=== PATIENT | female | born 1980 | race Caucasian/White ===

== ENCOUNTER 2025-05-05 23:53 | Emergency (ER) | payer BC ==
[~2025-05-05] VITALS: Ht 172.7 cm; Wt 65.0 kg
[2025-05-05 23:55] VITALS: BP 151/82; PULSE 102; RESP 18; TEMP 37.1; O2SAT 96
== END 2025-05-06 00:41 | disposition home or self-care (01) ==
LOC: ER 05-06 00:12
DX: R41.0 Disorientation, unspecified (principal); F10.129 Alcohol abuse with intoxication, unspecified; Y90.9 Presence of alcohol in blood, level not specified
CPT/HCPCS: 99283